=== PATIENT | male | born 1975 | race Caucasian/White ===

== ENCOUNTER 2017-01-31 13:51 | Emergency (ER) | payer OTHER ==
[2017-01-31 14:18] LABS: HEMOGLOBIN 15.9 gm/dl (14.0-17.5); RED BLOOD COUNT 5.21 M/UL (4.20-5.50); WHITE BLOOD COUNT 8.2 K/UL (4.5-11.0)
[2017-01-31 14:43] LABS: BUN/CREATININE RATIO 19 (0-10)
== END 2017-01-31 17:17 | disposition home or self-care (01) ==
LOC: ER1 13:51
PROVIDERS: Family Medicine
DX: R07.89 Other chest pain (principal); M54.2 Cervicalgia; G89.29 Other chronic pain; F17.200 Nicotine dependence, unspecified, uncomplicated
CPT/HCPCS: 36415; 71010; 80053; 84484; 85025; 85610; 85730; 93005; 99285